=== PATIENT | male | born 1975 | race Caucasian/White ===

== ENCOUNTER 2017-08-21 18:46 | Emergency (ER) | payer BC ==
[2017-08-21] MEDS ORDERED: Lidocaine 2% 10 ML Amp INJECT ONE (19:06)
--- NOTE | 2017-08-21 19:09 | EDM.PDOC ---
ED HPI GENERAL MEDICAL PROBLEM - General Chief Complaint: Laceration Stated Complaint: cut finger Time Seen by Provider: 08/21/17 18:51 Source of Information: Reports: Patient, RN, RN Notes Reviewed History Limitations: Reports: No Limitations - History of Present Illness INITIAL COMMENTS - FREE TEXT/NARRATIVE: Patient presents to the ED at [facility] after he sustained a laceration to the right index finger. Patient states he was washing dishes and when he went to reach into the sink, he lacerated the distal end of the right index finger. No previous injury or trauma. Patient denies any numbness, tingling, or paresthesia. This is not a work related injury. Onset: Today Right 2-Index finger Pain Score (Numeric/FACES): 7 - Related Data Allergies Allergy/AdvReac Type Severity Reaction Status Date / Time No Known Allergies Allergy Verified 08/21/17 19:03 Home Meds: Home Meds ALPRAZolam [Xanax] 0.5 - 1 mg PO BEDTIME 08/21/17 [History] Baclofen 10 mg PO TID 08/21/17 [History] Cyclobenzaprine [Flexeril] 10 mg PO Q8H PRN 08/21/17 [History] Diclofenac Sodium [Voltaren] 4 gm TP BID 08/21/17 [History] Gabapentin [Neurontin] 100 mg PO TID 08/21/17 [History] Hydrocodone/Acetaminophen [[place] 10-325 Tablet] 1 each PO Q6H 08/21/17 [History] Multivitamin [Multivitamins] 1 each PO DAILY 08/21/17 [History] Valsartan/Hydrochlorothiazide [Diovan Hct 320-25 mg Tablet] 1 each PO DAILY [History] amLODIPine Besylate [Amlodipine Besylate] 5 mg PO DAILY 08/21/17 [History] Social & Family History - Tobacco Use Smoking Status *Q: Never Smoker ED ROS GENERAL - Review of Systems Review Of Systems: See Below Constitutional: Denies: Fever, Chills, Weakness Respiratory: Denies: Shortness of Breath, Cough Cardiovascular: Denies: Chest Pain, Palpitations Skin: Reports: Wound (cut to right index finger) Neurological: Reports: No Symptoms ED EXAM, SKIN/RASH Exam: See Below Exam Limited By: No Limitations General Appearance: Alert, No Apparent Distress Respiratory/Chest: No Respiratory Distress, Lungs Clear, Normal Breath Sounds Cardiovascular: Normal Peripheral Pulses, Regular Rate, Rhythm Peripheral Pulses: 2+: Radial (L), Radial (R) Neurological: Alert, Oriented Skin: Warm, Dry, Normal Color, Wound/Incision (3.5 horizontal laceration to the distal end of the right index finger; low grade venous ooze, no evidence of tendon involvement; no nailbed injury) ED SKIN PROCEDURES - Laceration/Wound Repair Right Distal Finger Lac/Wound length In cm: 3.5 Appearance: Subcutaneous, Linear, Clean Distal NVT: Neuro & Vascular Intact, No Tendon Injury Anesthetic Type: Digital Local Anesthesia - Lidocaine (Xylocaine): 2% Plain Local Anesthetic Volume: Other (10cc) Skin Prep: Chlorhexidine (Hibiciens), Saline Exploration/Debridement/Repair: Wound Explored, In a Bloodless Field, No Foreign Material Found, Wound Margins Revised Closed with: Sutures Suture Size: 4-0 # of Sutures: 6 Suture Type: Nylon, Interrupted, Simple Sterile Dressing Applied: Nurse Tetanus Status Addressed: Yes Complications: No Course - Vital Signs Last Recorded V/S: Last Vital Signs Temp 36.1 C 08/21/17 18:46 Pulse 90 08/21/17 18:46 Resp 18 08/21/17 18:46 BP 174/117 H 08/21/17 18:46 Pulse Ox 95 08/21/17 18:46 - Orders/Labs/Meds Meds: Medications Discontinued Medications Generic Name Dose Route Start Last Admin Trade Name Alvaro PRN Reason Stop Dose Admin Lidocaine HCl 10 ml 08/21/17 19:06 08/21/17 19:23 Xylocaine-Mpf 2% (Sterile-Jignesh) INJECT 08/21/17 19:07 10 ml ONETIME ONE Administration Departure - Departure Time of Disposition: 19:57 Disposition: Home, Self-Care 01 Condition: Good Clinical Impression: Finger laceration Qualifiers: Encounter type: initial encounter Finger: index finger Damage to nail status: without damage Foreign body presence: without foreign body Laterality: right Qualified Code(s): S61.210A - Laceration without foreign body of right index finger without damage to nail, initial encounter - Discharge Information Instructions: Laceration Care, Adult, Sutured Wound Care Referrals: Shabbir Solares MD [Ordering Only Provider] - Forms: ED Department Discharge Additional Instructions: 1. Stay well hydrated and rest 2. Leave bandage on for at least 24 hours 3. Suture to remain in place for 10 days 4. See your Primary for a recheck and possible suture removal in 10 days 5. May take Tylenol for pain, if needed 6. May shower/bathe as usual 7. Call with any questions/concerns - Problem List Review Problem List Initiated/Reviewed/Updated: Yes
== END 2017-08-21 20:15 | disposition home or self-care (01) ==
LOC: VM.ED 18:46
DX: S61.210A Laceration without foreign body of right index finger without damage to nail, initial encounter (principal); Z79.899 Other long term (current) drug therapy; W26.8XXA Contact with other sharp object(s), not elsewhere classified, initial encounter
CPT/HCPCS: 12002; 99282